=== PATIENT | male | born 1955 | race Caucasian/White ===

== ENCOUNTER 2017-06-08 20:03 | Emergency (ER) | payer SELFPAY ==
[~2017-06-08] VITALS: Ht 170.2 cm; Wt 63.5 kg
[2017-06-08 20:05] VITALS: BP_SYST 94
--- NOTE | 2017-06-08 20:10 | NUR ---
Patient brought in by ambulance BLS for alcohol intoxication at local liquor store. Patient found outside of liquor store and would not leave the area so ambulance was called. Patient noted with left eye discoloration.
--- NOTE | 2017-06-08 20:10 | NUR ---
Patient to ER bed 5 to gown for evaluation. Side rails up.
[2017-06-08] MEDS ORDERED: NACL 0.9% 1,000 ML IV ONE (20:18)
--- NOTE | 2017-06-08 20:18 | NUR ---
ER MD Johnson at bedside for medical evaluation.
--- NOTE | 2017-06-08 20:40 | NUR ---
# 18 gauge angiocath placed to RAC. Use of asceptic technique. Opsite placed over site. Blood return noted. Blood for lab drawn from site. Flushed with 10 cc of normal saline. No evidence of infiltration noted. Patient tolerated well.
[2017-06-08] MEDS ORDERED: FOLIC ACID 5 MG/ML VIAL IV ONE (20:58)
[2017-06-08] MEDS ORDERED: MAGNESIUM SULFATE 1 GM/2 ML VIAL ONE (20:59)
[2017-06-08] MEDS ORDERED: FOLIC ACID 1 MG, THIAMINE HCL 100 MG, MAGNESIUM SULFATE 1 GM, MVI 10 ML in NACL 0.9% 1,... IV ONE (21:00)
[2017-06-08] MEDS ORDERED: MVI 10 ML VIAL IV ONE (21:01)
[2017-06-08] MEDS ORDERED: THIAMINE HCL 100 MG/ML VIAL ONE (21:02)
--- NOTE | 2017-06-08 21:20 | NUR ---
No adverse reactions noted after medication administration. Will continue to monitor.
[2017-06-08 21:36] LABS: INR 1.3 (0.80-1.20); PROTHROMBIN TIME 12.7 SECS (9.5-12.5)
--- NOTE | 2017-06-08 21:40 | NUR ---
Note undone in EDM - 06/08/17 at 2303 by DONNA # 18 gauge angiocath placed to RAC. Use of asceptic technique. Opsite placed over site. Blood return noted. Blood for lab drawn from site. Flushed with 10 cc of normal saline. No evidence of infiltration noted. Patient tolerated well.
[2017-06-08 21:49] LABS: BILIRUBIN,URINE NEGATIVE (NEGATIVE); CLARITY/URINE CLEAR (CLEAR); COLOR,URINE YELLOW (YELLOW); GLUCOSE,URINE NEGATIVE (NEGATIVE); KETONES,URINE NEGATIVE (NEGATIVE); LEUKOCYTE ESTERASE ,URINE NEGATIVE (NEGATIVE); NITRITE, URINE NEGATIVE (NEGATIVE); PH,URINE 5.5 (5.0-8.0); PROTEIN URINE NEGATIVE (NEGATIVE); UROBILINOGEN,URINE 0.2 (0.2-1.0)
[2017-06-08 21:51] LABS: BLOOD, URINE TRACE (NEGATIVE)
[2017-06-08 21:51] LABS: BASOPHILS % (AUTO) 0.8 % (0.0-2.0); EOSINOPHILS % (AUTO) 0.7 % (0.0-4.0); HEMATOCRIT 37.1 % (36-54); HEMOGLOBIN 12.4 g/dL (14.0-18.0); LYMPHOCYTES # (AUTO) 0.9 K/uL (1.0-5.5); LYMPHOCYTES % (AUTO) 22.8 % (20.5-51.5); MEAN CORPUSCULAR HEMOGLOBIN 33 pg (27-31); MEAN CORPUSCULAR HGB CONC 33 % (32-36); MEAN CORPUSCULAR VOLUME 99 fL (79.0-98.0); MONOCYTES # (AUTO) 0.5 K/uL (0.0-1.0); NEUTROPHILS # (AUTO) 2.6 K/uL (1.8-7.7); NEUTROPHILS % (AUTO) 62.7 % (40.0-70.0); PLATELET COUNT (AUTO) 112 K/uL (130-430); RED BLOOD CELL COUNT(AUTO) 3.76 MIL/uL (4.2-6.2); RED CELL DISTRIBUTION WIDTH 17.7 % (9.0-15.0)
[2017-06-08 21:58] LABS: BACTERIA,URINE FEW /HPF (None Seen); RBC,URINE 0-3 /HPF (0-3); WBC,URINE 0-3 /HPF (0-3)
[2017-06-08 22:00] LABS: BARBITURATE, URINE NEGATIVE (NEG <=200); BENZODIAZEPINE, URINE NEGATIVE (NEG <=150); CANNABINOID, URINE NEGATIVE (NEG <=50); COCAINE, URINE NEGATIVE (NEG <=150); METHAMPHETAMINES SCREEN,URINE NEGATIVE (NEG <=500); OPIATE, URINE NEGATIVE (NEG <=100); PHENCYCLIDINE SCREEN,URINE NEGATIVE (NEG <=25); UR TRICYCLIC ANTIDEPRESSANTS NEGATIVE (NEG <=300); URINE AMPHETAMINE NEGATIVE (NEG <=500); URINE METHADONE NEGATIVE (NEG <=200); URINE OXYCODONE SCREEN NEGATIVE (NEG <=100); URINE PROPOXYPHENE SCREEN NEGATIVE (NEG <=300)
[2017-06-08 22:05] LABS: ANION GAP 3 (5-15); CHLORIDE 107 mmol/L (98-107); CREATININE 0.64 mg/dL (0.55-1.30); GLUCOSE 92 mg/dL (70-99); POTASSIUM 3.5 mmol/L (3.5-5.1); SODIUM SERUM 140 mmol/L (136-145); UREA NITROGEN, BLOOD 10 mg/dL (8-21)
[2017-06-08 22:11] LABS: ALANINE AMINOTRANSFERASE 65 U/L (12-78); ALBUMIN 2.9 g/dL (3.4-4.8); ALCOHOL, BLOOD 291 mg/dL (<10); AMYLASE 109 U/L (0-100); ASPARTATE AMINOTRANSFERASE 101 U/L (10-37); LIPASE 437 U/L (73-393); TOTAL BILIRUBIN 0.5 mg/dL (0.0-1.0)
[2017-06-08 22:22] LABS: GFR AFRICAN AMERICAN 163 mL/min (>90)
[2017-06-08 22:26] LABS: ACETAMINOPHEN < 1 ug/mL (1-30)
[2017-06-08 22:44] LABS: CKMB RELATIVE INDEX 1.1 (0.0-2.9); CREATINE KINASE MB 5.5 ng/mL (0-3.6)
--- NOTE | 2017-06-08 23:15 | NUR ---
Per patient, he takes no home meds.
--- NOTE | 2017-06-09 00:20 | NUR ---
Patient resting comfortably. No acute distress noted at this time.
--- NOTE | 2017-06-09 02:00 | NUR ---
Patient resting comfortably. No acute distress noted.
--- NOTE | 2017-06-09 04:00 | NUR ---
Patient resting comfortably. Rise and fall of chest noted.
--- NOTE | 2017-06-09 06:40 | NUR ---
Patient assisted to restroom. Patient noted with steady gait.
--- NOTE | 2017-06-09 07:05 | NUR ---
Patient is awake, alert and oriented. Ambulatory with steady gait. Given list of available shelters in surrounding areas.
--- NOTE | 2017-06-09 07:10 | NUR ---
Report given to Génesis POSADA. All care endorsed.
--- NOTE | 2017-06-09 07:30 | NUR ---
Patient given written and verbal discharge instructions and verbalizes understanding. ER MD discussed with patient the results and treatment provided. Patient in stable condition. ID arm band removed. IV catheter removed intact and dressing applied, no active bleeding. NO Rx given. Patient educated on pain management and to follow up with PMD. Pain Scale 0/10. Opportunity for questions provided and answered. PT GIVEN LIST OF HOMELESS SHELTERS.
[2017-06-09 07:31] VITALS: BP_SYST 121
== END 2017-06-09 07:31 | disposition home or self-care (01) ==
LOC: SED 20:03
DX: S00.12XA Contusion of left eyelid and periocular area, initial encounter (principal); F10.129 Alcohol abuse with intoxication, unspecified; X58.XXXA Exposure to other specified factors, initial encounter; Y93.89 Activity, other specified; Y92.89 Other specified places as the place of occurrence of the external cause; Y99.8 Other external cause status
CPT/HCPCS: 36415; 70450; 74018; 80053; 80307; 81000; 82150; 82550; 82553; 83690; 84484; 85025; 85610; 85730; 93005; 96361; 96365; 96366; 99285; G0480; G0482; J3411; J3475; J3490; J7030